=== PATIENT | female | born 1975 | race Caucasian/White ===

== ENCOUNTER → 2019-09-28 07:35 | Outpatient (CLI) | payer OTHER, SELFPAY ==
--- NOTE | 2019-09-28 07:37 | DI.MRI.S_ITS ---
PROCEDURE: MR ABDOME PELVIS WWO CON INDICATIONS: Eval large 12cm fibroid increasing in size TECHNIQUE: Coronal HASTE, sagittal breath-hold T2 FSE; axial 2-D FLASH in- and [id number], axial T1 FSE with fat saturation through the pelvis. Optional long- and short-axis uterine nonbreath-hold T2 FSE through the uterus. Sagittal or axial dynamic VIBE during IV gadolinium administration; postgadolinium axial and sagittal VIBE/2-D FLASH with fat saturation from the iliac crests to the symphysis. COMPARISON: None. FINDINGS: Image quality: Excellent. Uterus: The uterus contains a large right posterior exophytic mass with heterogeneous hypoechogenicity measuring approximately 12.3 x 7.4 x 10.7 cm. This displaces bowel and other pelvic soft tissues. Postcontrast, there is mild heterogeneous internal enhancement, not significantly increased above background parenchyma. Scattered, linear, and bandlike areas of fluid suggest early degeneration, but no internal cystic, fatty, or hemorrhagic changes. A T-shaped IUD is barely visible in the uterine fundus, better seen by CT. Adnexa: Ovarian tissue appears normal. Trace physiologic fluid in the pelvis posteriorly. Urinary system: The urinary bladder is mildly and fairly decompressed by a pelvic mass. The ureters are nondilated. No hydronephrosis. Abdomen: The liver, spleen, adrenal glands, kidneys, and pancreas have a normal MR appearance. No stones in the gallbladder.. No biliary dilatation. Bowel loops demonstrate increased quantity of colonic stool. Retroperitoneal vessels are normal caliber. No adenopathy. Bones and soft tissues: Normal signal the osseous structures. No ventral or inguinal hernias. IMPRESSION: 1. 12.3 cm uterine fibroid with mild degenerative changes. Expected degree of enhancement. 2. No evidence of significant ascites, lymphadenopathy, peritoneal implants, or invasion of adjacent structures. Dictated by: Fallon Gee M.D. on 09/28/2019 at 10:44 Approved by: Fallon Gee M.D. on 09/28/2019 at 11:06
--- NOTE | 2019-09-28 07:37 | DI.CT.S_ITS ---
PROCEDURE: CT ABDOMEN PELVIS W CON INDICATIONS: 12 cm fibroid increasing in size TECHNIQUE: After the administration of intravenous contrast, 5 mm thick sections acquired from the diaphragm to the symphysis. 5 mm coronal and sagittal reformats were acquired. For radiation dose reduction, the following was used: automated exposure control, adjustment of mA and/or kV according to patient size. COMPARISON: [facility], , PELVIC COMPLETE, 06/29/2019, 15:38. [facility], , PELVIC COMPLETE, 09/21/2019, 12:18. FINDINGS: Image quality: Excellent. ABDOMEN: Lung bases: Lung bases are clear. Heart size is normal. Solid organs: Liver is normal in size and enhancement. Gallbladder is normal. Biliary system is non dilated. Pancreas enhances normally. Spleen is normal in size and enhancement. No adrenal nodules. Kidneys demonstrate normal size and enhancement, without hydronephrosis. Peritoneum and bowel: Bowel loops demonstrate normal wall thickness and caliber. There is a large amount of stool in colon. No free fluid or air. Nodes and vessels: No retroperitoneal or mesenteric adenopathy by size criteria. Aorta and inferior vena cava are normal in size. Miscellaneous: No ventral hernias. PELVIS: Genitourinary: There is a large subserosal uterine leiomyoma arising from the right posterior lateral wall measuring 10.8 x 2.2 x 11.6 cm. An IUD is noted within the uterine cavity. Bladder wall thickness is normal. There is no free fluid in pelvis. Miscellaneous: No inguinal hernias or adenopathy. Bones: No suspicious bony lesions. No vertebral body compression fractures. IMPRESSION: 1. A large subserosal uterine leiomyoma arising from the right posterior lateral wall measuring 10.8 x 2.2 x 11.6 cm. Dictated by: Varun Babcock M.D. on 09/28/2019 at 9:02 Approved by: Varun Babcock M.D. on 09/28/2019 at 9:11
== END ==
PROVIDERS: PCP Registered Nurse; Referring Provider Obstetrics & Gynecology; Visit Provider Obstetrics & Gynecology
DX: D25.2 Subserosal leiomyoma of uterus (principal); N94.89 Other specified conditions associated with female genital organs and menstrual cycle; Z97.5 Presence of (intrauterine) contraceptive device
CPT/HCPCS: 72197; 74177; Q9967